=== PATIENT | male | born 1980 | race Caucasian/White ===

== ENCOUNTER 2018-12-16 20:25 | Emergency (ER) | payer SELFPAY ==
[~2018-12-16] VITALS: Ht 167.6 cm; Wt 96.4 kg
--- NOTE | 2018-12-16 21:00 | NUR ---
PRESENTS WITH DIZZINESS. REPORTS HX OF DM- BUT HASN'T BEEN TAKING HIS INSULIN. APPEARS WELL, NORMAL RR, VSS.
[2018-12-16 21:19] LABS: BASOPHILS # (AUTO) 0.08 x10^3/uL (0-0.1); BASOPHILS % (AUTO) 1 % (0-1); EOSINOPHILS # (AUTO) 0.12 x10^3/uL (0-0.4); EOSINOPHILS % (AUTO) 1 % (1-7); LYMPHOCYTES # (AUTO) 3.41 x10^3/uL (1-3.4); LYMPHOCYTES % (AUTO) 37 % (22-44); MD NO; MEAN CORPUSCULAR HEMOGLOBIN 32.4 pg (27.5-34.5); MEAN CORPUSCULAR HGB CONC 35.2 g/dL (33.2-36.2); MEAN CORPUSCULAR VOLUME 92.2 fL (81-97); MEAN PLATELET VOLUME 8.2 fL (7.4-10.4); MONOCYTES # (AUTO) 0.77 x10^3/uL (0.2-0.8); MONOCYTES % (AUTO) 8 % (2-9); NEUTROPHILS # (AUTO) 4.93 x10^3/uL (1.8-6.8); NEUTROPHILS % (AUTO) 53 % (42-75); PLATELET COUNT 279 x10^3/uL (130-400); RED CELL DISTRIBUTION WIDTH 13.6 % (9.4-14.8)
[2018-12-16 21:28] LABS: ALANINE AMINOTRANSFERASE 32 U/L (12-78); ALBUMIN 4.1 g/dL (3.4-5.0); ANION GAP 5 mmol/L (5-15); CALCIUM 8.6 mg/dL (8.5-10.1); CHLORIDE 106 mmol/L (98-107)
[2018-12-16 21:30] LABS: ALKALINE PHOSPHATASE 106 U/L (45-117); BILIRUBIN,TOTAL 0.5 mg/dL (0.2-1.0)
--- NOTE | 2018-12-16 21:40 | NUR ---
PROVIDER/GAMING HOST REVIEWED LABS W/ PATIENT. ENCOURAGED IMPORTANCE OF INCREASED PO FLUIDS (WATER). PROVIDER'S SCRIBE PROVIDED PATIENT W/ INSTRUCTIONS ON HOW TO OBTAIN A FREE GLUCOMETER WITH [employer] COUPON, WELL A LIST OF SERVICES IN [place]. [facility] AND ENSURED A BED WAS AVAILABLE FOR THE NIGHT. PATIENT PROVIDER WITH TAXI VOUCHER AND DISCHARGED W/OUT EVENT.
[2018-12-16 21:48] LABS: ACETONE, SERUM Negative (Negative)
[2018-12-16 22:07] VITALS: BP 150/77
== END 2018-12-16 22:10 | disposition home or self-care (01) ==
LOC: ED 21:01
DX: E11.65 Type 2 diabetes mellitus with hyperglycemia (principal); F17.200 Nicotine dependence, unspecified, uncomplicated; Z79.4 Long term (current) use of insulin
CPT/HCPCS: 80053; 82010; 82800; 82962; 85025; 99283

== ENCOUNTER 2019-01-22 13:45 | Emergency (ER) | payer SELFPAY ==
[~2019-01-22] VITALS: Ht 172.7 cm; Wt 92.0 kg
[2019-01-22 13:47] VITALS: BP 127/78
--- NOTE | 2019-01-22 13:57 | NUR ---
LEFT FOOT PAIN AND SMALL ABRASION LEFT LOWER EXTREMITY AFTER FOOT RAN OVER BY ELECTRIC WHEELCHAIR JUST [employer]
[2019-01-22] MEDS ORDERED: ACETAMINOPHEN 500 MG TABLET ONE (14:06)
--- NOTE | 2019-01-22 14:09 | NUR ---
TO XRAY VIA SELWYN
[2019-01-22] MEDS ORDERED: ACETAMINOPHEN 500 MG TABLET PO ONE (14:30)
--- NOTE | 2019-01-22 14:49 | NUR ---
PROVIDED ICE PACK, CRUTCHES AND CRUTCH TEACHING. AMBULATED TO DISCHARGE WINDOW WITH USE OF CRUTCHES, NO DISTRESS
== END 2019-01-22 14:52 | disposition home or self-care (01) ==
LOC: ED 14:46
DX: G89.11 Acute pain due to trauma (principal); M25.562 Pain in left knee; M79.662 Pain in left lower leg; M25.572 Pain in left ankle and joints of left foot; X58.XXXA Exposure to other specified factors, initial encounter; Y93.89 Activity, other specified; Y92.410 Unspecified street and highway as the place of occurrence of the external cause; Y99.8 Other external cause status
CPT/HCPCS: 99283

== ENCOUNTER 2019-02-09 09:47 | Emergency (ER) | payer MEDICAID ==
[~2019-02-09] VITALS: Ht 170.2 cm; Wt 86.0 kg
[2019-02-09 10:12] VITALS: BP 149/92
[2019-02-09 11:12] LABS: PH, VENOUS 7.396 pH (7.320-7.420)
[2019-02-09 11:15] LABS: BASOPHILS # (AUTO) 0.04 x10^3/uL (0-0.1); BASOPHILS % (AUTO) 0 % (0-1); EOSINOPHILS # (AUTO) 0.06 x10^3/uL (0-0.4); EOSINOPHILS % (AUTO) 1 % (1-7); LYMPHOCYTES # (AUTO) 2.92 x10^3/uL (1-3.4); LYMPHOCYTES % (AUTO) 25 % (22-44); MD NO; MEAN CORPUSCULAR HEMOGLOBIN 31.1 pg (27.5-34.5); MEAN CORPUSCULAR VOLUME 94.2 fL (81-97); MEAN PLATELET VOLUME 8.1 fL (7.4-10.4); MONOCYTES # (AUTO) 0.59 x10^3/uL (0.2-0.8); MONOCYTES % (AUTO) 5 % (2-9); NEUTROPHILS # (AUTO) 7.91 x10^3/uL (1.8-6.8); NEUTROPHILS % (AUTO) 69 % (42-75); PLATELET COUNT 318 x10^3/uL (130-400); RED BLOOD COUNT 5.34 x10^6/uL (4.38-5.82); RED CELL DISTRIBUTION WIDTH 13.1 % (9.4-14.8)
[2019-02-09 11:23] LABS: ACETONE, SERUM Trace (10mg/dL) mg/dL (Negative); ALANINE AMINOTRANSFERASE 25 U/L (12-78); ALBUMIN 3.9 g/dL (3.4-5.0); ANION GAP 6 mmol/L (5-15); CALCIUM 9.3 mg/dL (8.5-10.1); CHLORIDE 99 mmol/L (98-107); CREATININE 1.05 mg/dL (0.7-1.3)
[2019-02-09 11:25] LABS: ALKALINE PHOSPHATASE 144 U/L (45-117); BILIRUBIN,TOTAL 0.3 mg/dL (0.2-1.0); TOTAL PROTEIN 7.9 g/dL (6.4-8.2)
[2019-02-09] MEDS ORDERED: LIDOCAINE 1%-EPI 1:100K, 20ML SQ ONE (11:30)
[2019-02-09] MEDS ORDERED: BUPIVACAINE/PF-EPI 0.25% 1:200K SQ ONE (11:30)
[2019-02-09] MEDS ORDERED: LIDOCAINE-MPF 1%, 2ML ONE (11:33)
[2019-02-09] MEDS ORDERED: BUPIVACAINE 0.25% ONE (11:34)
--- NOTE | 2019-02-09 11:49 | NUR ---
ASSUMED CARE AT THIS TIME. BEDSIDE REPORT FROM ISAI CARDENAS.
[2019-02-09] MEDS ORDERED: INSULIN LISPRO 100 UNITS/ML, PEN ONE (11:53)
[2019-02-09] MEDS ORDERED: INSULIN REGULAR 100 UNITS/ML, 3ML VIAL SQ-INSULIN ONE (12:00)
[2019-02-09] MEDS ORDERED: SODIUM CHLORIDE 0.9% 1,000ML IVBOLUS ONE (12:00)
--- NOTE | 2019-02-09 12:27 | NUR ---
PT BECAME AGGREVATED WHEN NO OPIOD PAIN PILLS WERE NOT OFFERED. PT WAS TOLD THAT TYLENOL WOULD BE GIVEN PER MD. PT DID NOT WANT A LOCAL BLOCK HE DOES NOT LIKE NEEDLES. PT BECAME AGGRESSIVE AND DEMANDING THAT HE BE MEDICATED AND IT BE DONE IMMEDIATELY. PT EXAPLINED THAT RN CANNOT MEDICATE WITHOUT A RX ORDER FROM MD. PT INFORMED THAT IF HE WANTED TO LEAVE HE HAD THAT RIGHT AND WAS NOT BEING HELD AGAIANST HIS WILL. PT STORMED OFF AFTER SWEARING AT MULTIPLE RNS BECAUSE HE HAD BEEN WAITING FOR 3 HOURS AND WAS NOT SEEN WHICH IS NOT A ACCURATE STATEMENT. SUP RN INFORMED.
== END 2019-02-09 12:39 | disposition left against medical advice (07) ==
LOC: ED 11:06
DX: K04.7 Periapical abscess without sinus (principal); K02.9 Dental caries, unspecified; E11.9 Type 2 diabetes mellitus without complications; Z88.0 Allergy status to penicillin
CPT/HCPCS: 36415; 80053; 82010; 82803; 82962; 85025; 96372; 99283; J1815; J3490

== ENCOUNTER 2019-03-07 11:50 | Emergency (ER) | payer MEDICAID ==
[~2019-03-07] VITALS: Ht 172.7 cm; Wt 84.5 kg
[2019-03-07 11:59] VITALS: BP 120/83
--- NOTE | 2019-03-07 12:07 | NUR ---
PT STATES HE WAS HERE TO GET A WOUND PACKED ON BUTTOCKS, HE WAS TOLD AT THAT TIME TO COME BACK AND HAVE THE PACKING REMOVED IN 2 DAYS. PT HAS NO C/O SOB, CP, TRAUMA, N/V/D. STATES "I JUST WANT THIS PACKING OUT AND THIS OVER WITH"
[2019-03-07] MEDS ORDERED: HYDROcodone/APAP 5/325 TABLET ONE (12:56)
[2019-03-07] MEDS ORDERED: HYDROcodone/APAP 5/325 TABLET PO ONE (13:00)
--- NOTE | 2019-03-07 13:02 | NUR ---
ER PROVIDER IN TO REMOVE AND REPACK WOUND. PT MEDICATED FOR PAIN PER MAR. PT TO D/C
== END 2019-03-07 13:27 | disposition home or self-care (01) ==
LOC: ED 13:12
DX: L02.31 Cutaneous abscess of buttock (principal); E11.9 Type 2 diabetes mellitus without complications
CPT/HCPCS: 99283